=== PATIENT | male | born 1975 | race Caucasian/White ===

== ENCOUNTER 2017-09-16 10:18 | Emergency (ER) | payer MEDICARE, SELFPAY ==
[2017-09-16] VITALS (17 sets, daily range): BP systolic 121–169; BP diastolic 73–116; PULSE 64–80; RESP 13–27; TEMP 36.6; O2SAT 96–100
--- NOTE | 2017-09-16 10:36 | ED.GENADUL_ITS ---
Disposition Clinical Impression: Muscle strain, Abdominal pain Disposition: HOME Condition: Fair Instructions: Muscle Strain (ED), Abdominal Pain (ED) Additional Instructions: Encourage hydration. Tylenol and/or ibuprofen as needed for discomfort. Gentle stretching as discussed to help with your left shoulder pain. You may try Salonpas or Lidoderm patches to help with discomfort. In regard to your abdominal pain, you may find over the counter medication such as Omeprazole, to help with the discomfort. Especially as the pain is worse after eating when laying flat, this may be related to your acid reflux. I have asked our career and transition teacher to help you establish care with primary care. They will contact you. If you develop new/worsening symptoms return to the ER once again. Referrals: Primary Care Provider [Outside] Medical Decision Making - Lab Data Laboratory Tests 09/16/17 09/16/17 09/16/17 10:34 10:34 10:35 WBC 11.65 H RBC 5.66 Hgb 17.5 Hct 49.9 MCV 88.2 MCH 30.9 MCHC 35.1 RDW 13.6 Plt Count 204 MPV 10.9 Immature Gran % 0.4 Neutrophils % 67.7 Lymphocytes % 19.5 Monocytes % 7.0 Eosinophils % 4.9 Basophils % 0.5 Absolute Neutrophils 7.89 H Absolute Lymphocytes 2.27 Absolute Monocytes 0.82 H Absolute Eosinophils 0.57 Absolute Basophils 0.06 Sodium 138 Potassium 4.4 Chloride 101 Carbon Dioxide 27.7 Anion Gap 9.3 BUN 16 Creatinine 1.09 Estimated GFR/1.73 m2 >= 60.00 Glucose 104 H Calcium 9.3 Magnesium 2.0 Total Bilirubin 0.6 AST 19 ALT 47 Alkaline Phosphatase 74 Troponin I < 0.02 Total Protein 8.4 H Albumin 4.6 Lipase 176 TSH 3.14 Urine Color Urine Clarity Urine pH Ur Specific Bena Urine Protein Urine Ketones Urine Blood Urine Nitrite Urine Bilirubin Urine Urobilinogen Ur Leukocyte Esterase Urine RBC Urine WBC Ur Epithelial Cells Urine Crystals Urine Bacteria Urine Casts Urine Mucus Ur Culture Indicated? Urine Glucose 09/16/17 11:28 WBC RBC Hgb Hct MCV MCH MCHC RDW Plt Count MPV Immature Gran % Neutrophils % Lymphocytes % Monocytes % Eosinophils % Basophils % Absolute Neutrophils Absolute Lymphocytes Absolute Monocytes Absolute Eosinophils Absolute Basophils Sodium Potassium Chloride Carbon Dioxide Anion Gap BUN Creatinine Estimated GFR/1.73 m2 Glucose Calcium Magnesium Total Bilirubin AST ALT Alkaline Phosphatase Troponin I Total Protein Albumin Lipase TSH Urine Color Yellow Urine Clarity Clear Urine pH 7.0 Ur Specific Bena 1.020 Urine Protein Negative Urine Ketones Negative Urine Blood Trace-intact H Urine Nitrite Negative Urine Bilirubin Negative Urine Urobilinogen 0.2 Ur Leukocyte Esterase Negative Urine RBC 0-2 Urine WBC 0-2 Ur Epithelial Cells Few Urine Crystals Negative Urine Bacteria Rare Urine Casts Negative Urine Mucus Trace Ur Culture Indicated? No Urine Glucose Negative Results reviewed for labs ordered during visit: Yes - Medical Decision Making Patient presents today for multitude of complaints. Patient is endorsing pain in the left shoulder after repetitive heavy lifting 3 months ago. Exam is fairly benign. With forward elevation he did endorse pain over the trapezius. Full range of motion of the shoulder. No indication of rotator cuff injury at this time. Patient did not have any traumatic incident of the left shoulder. He reports that overall the pain is much improved compared to when he first noted it. The pain is improving, he had no trauma I do not feel that imaging is warranted at this time. In regard to his cyst on the left side of his back , I do not see any evidence of swelling, no signs of trauma. No palpable abnormality. The area the patient is indicating as his cyst as well as his area of discomfort is consistent with the end of the rib. Advised he try not to press excessively on this area as he seems to fixate on his complaints. Advised he may take Tylenol and/or ibuprofen as needed for discomfort. Advised that at this point I see no need for intervention. Patient had been endorsing some shortness of breath when waking suddenly at night. His description is most concerning for sleep apnea. No dyspnea on exertion. Patient is not currently feeling short of breath. Lungs are clear on exam. Normal cardiac exam. In regard to the mass he was feeling in his stomach, patient is pressing directly on the xiphoid process is the area that he is considering to be swollen. Pain is elicited with palpation over the xiphoid process. Patient reports that this has been there for quite some time and has been unchanged. I do not see any evidence of hernia. Patient is also concerned he has had diffuse abdominal pain for the past 1.5 years since mold exposure. Patient is endorsing diffuse abdominal pain but none seem to be elicited on exam. He reports that pain is worse after eating, primarily when he lies flat shortly after eating. He reports that he has history of acid reflux. Does not take any medication for this. Has not tried any medications for his discomfort or his acid reflux. We will obtain laboratory evaluation, chest x-ray and EKG. Patient is noted to be hypertensive, he does have a history of hypertension. Is also appearing quite anxious. This will be reassessed prior to his departure. We discussed that he would need to discuss his hypertension further with his primary care. EKG obtained by nursing staff and reviewed by Dr. York, no acute abnormality noted. Chest XR reviewed by myself and radiologist, no acute abnormality noted. Laboratory evaluation without significant abnormality. Urine is still pending. I discussed results with patient. I have asked our career and transition teacher to help facilitate f/u with PCP. Advised that he try stretching, heat/ice, topical patches and f/u with PCP for his left shoulder discomfort. In regard to his diffuse abdominal pain, lipase is normal, no abnormalities in kidney or liver function tests. No pain with palpation on exam. I do not We discussed his pain with palpation over the xyphoid and left lower rib, advised he try to not press on these areas as frequently. Urine without significant abnormality. Discussed all of the results with the patient. Patient will follow up with primary care, career and transition teacher help facilitate follow-up. I advised he begin [id number] medication to help with his abdominal pain that is most consistent with his history of GERD. Advised that he try [id number] analgesics to help with his multiple areas of discomfort. Advised he stop pressing on his xiphoid process as well as his left lower rib which seems to cause pain. Patient does endorse a large amount of anxiety and does report that he tends to fixate on his discomfort. He will discuss his blood pressure further with primary care. I encouraged hydration and overall healthy lifestyle choices. We discussed new/worsening symptoms emergency care urgently once again. All his questions and concerns were addressed he is in agreement with this plan. At the time of discharge patient' s blood pressure was 123/73. History of Present Illness - General Chief complaint: Abd Prob Stated complaint: ABDOMINAL PAIN Time Seen by Provider: 09/16/17 10:21 Source: patient, family, RN notes reviewed Mode of arrival: ambulatory Limitations: no limitations - History of Present Illness Initial comments: Patient is a 42-year-old male, accompanied by his mother, with multiple complaints today. Patient does not have a primary care provider and reports it has been approximately 13 years since his last visit with the physician. Patient reports that he has had left shoulder pain, particularly with forward elevation, for the past 3 months after repetitive heavy lifting. States that he has tingling in all of the tips of his digits. Patient is RHD. He is also endorsing a cyst on the left side of his mid back. Reports that this can be painful, particularly with palpation. Denies noting changes in the skin. Patient is also endorsing diffuse abdominal pain which she states has been present for the past 1.5 years. Reports that this abdominal pain has been present since renovating a bathroom which she states was full of mold. Feels that this may be linked. States that this pain is worse after eating, particularly at night when he lies flat shortly after eating. Also endorses a bulge at the superior, central aspect of his stomach. He denies any nausea vomiting. Denies any change in his bowels although he reports that he has had pain with BM for the past year. Denies any fevers or chills. States that for the past 3 months he has a few episodes when he awoke feeling SOB. He reports that he wakes up feeling SOB but that this can then quickly resolve. Patient has history of hypertension. - Related Data Allergies Allergy/AdvReac Type Severity Reaction Status Date / Time Iodinated Contrast- Oral and Allergy Unverified 09/16/17 10:27 IV Dye shellfish derived Allergy Unverified 09/16/17 10:27 Review of Systems Constitutional: no symptoms reported Respiratory: see HPI Cardiovascular: denies: chest pain, palpitations, dyspnea on exertion Gastrointestinal: as per HPI Genitourinary: dysuria. denies: urgency, frequency, hematuria, discharge, testicular pain Musculoskeletal: as per HPI Skin: denies: rash, lesions Neurological: as per HPI, paresthesias. denies: headache, weakness, confusion, abnormal gait Past Medical History - Past Medical History Medical history: hypertension Surgical history: herniorraphy - Social History Smoking status: former smoker (currently uses chewing tobacco) Drug use: marijuana (daily) General Exam - General Limitations: no limitations General appearance: alert, in no apparent distress - Head Head exam: Present: atraumatic - Eye Eye exam: Present: normal apperance - Respiratory Respiratory exam: Present: normal lung sounds bilaterally. Absent: respiratory distress, wheezes, rales, rhonchi - Cardiovascular Cardiovascular Exam: Present: regular rate, normal rhythm, normal heart sounds - GI/Abdominal GI/Abdominal exam: Present: soft, tenderness (tenderness and 'mass' noted over the xyphoid process. No evidence of hernia), normal bowel sounds. Absent: distended, guarding, rebound, rigid, organomegaly - Rectal Rectal exam: Present: normal inspection, normal rectal tone, heme (-) stool, normal prostate. Absent: black stool, fecal impaction, hemorrhoids, mass, tenderness, prostate tenderness, prostate enlargement - Extremities Exam Extremities exam: Present: tenderness. Absent: normal inspection (Given the patient's left upper extremity significant for pain with forward elevation. When he does this he indicates pain superiorly along the trapezius. He has full range of motion. 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 Negative Speed, negative Stanley, negative Neer.), pedal edema, joint swelling, calf tenderness - Back Exam Back exam: Present: tenderness (patient has point tenderness over 'bulge' on the left side of his back. No masses are palpable, patient has tenderness over the rib edge. He endorses this as the area of the 'cyst'. No cyst palpable. No discoloration in the skin ). Absent: CVA tenderness (R), CVA tenderness (L), muscle spasm, paraspinal tenderness, vertebral tenderness, rash noted - Neurological Exam Neurological exam: Present: alert, normal gait - Psychiatric Psychiatric exam: Present: normal affect, normal mood - Skin Skin exam: Present: warm, dry, intact, normal color Course Vital Signs - 24 hr 09/16/17 10:22 Temperature 36.6 C Pulse 80 Respiratory 16 Rate Blood Pressure 169/113 Pulse Oximetry 98
[2017-09-16 10:47] LABS: Abs Immature Grans 0.05 k/cumm (0.0-0.09); Absolute Basophil Count 0.06 k/cumm (0.0-0.2); Absolute Eosinophil Count 0.57 k/cumm (0.0-0.7); Absolute Lymphocyte Count 2.27 k/cumm (1.2-3.4); Absolute Monocyte Count 0.82 k/cumm (0.11-0.7); Basophils % 0.5; Eosinophils % 4.9; HCT 49.9 % (40.0-50.0); HGB 17.5 g/dL (13.5-17.5); Immature Grans % 0.4; Lymphocytes % 19.5; Mean Corp. HGB Concentration 35.1 g/dL (32.0-36.0); Mean Corpuscular Hemoglobin 30.9 pg (27.0-33.0); Mean Corpuscular Volume 88.2 fL (80-95); Mean Platelet Volume 10.9 fL (8.0-11.0); Neutrophils % 67.7; Platelet Count 204 x1000/uL (130-400); RBC 5.66 m/cumm (4.50-6.00); RBC Distribution Width 13.6 % (11.8-14.1); White Blood Cell Count 11.65 k/cumm (4.4-10.8)
[2017-09-16] MEDS: Normal Saline 1,000 ML 150 ML IV (10:47)
--- NOTE | 2017-09-16 10:47 | ED.FU ---
Care Signed Out By:: santiago - Vital Signs Recent Vitals - 8H: Vital Signs - 8 hr 09/16/17 10:22 Temperature 36.6 C Pulse 80 Respiratory 16 Rate Blood Pressure 169/113 Pulse Oximetry 98 - Continuation of Care Continuation of Care Plan: EKG 10: 28 Rate 75, intervals normal, no ST elevations or depressions. No T-wave inversions. Normal EKG. No Q waves
[2017-09-16 10:50] LABS: Absolute Neutrophil Count 7.89 k/cumm (1.2-6.7)
--- NOTE | 2017-09-16 10:54 | DI.REPORT_ITS ---
SYMPTOM/DIAGNOSIS: SOB PA AND LATERAL CHEST: The heart is normal in size. The lungs are clear. The mediastinal structures and pleura appear intact. CONCLUSION: Normal chest.
[2017-09-16 11:07] LABS: ALT 47 U/L (12-78); AST 19 U/L (15-37); Albumin 4.6 g/dL (3.4-5.0); Alkaline Phosphatase 74 U/L (46-116); Anion Gap 9.3 mmol/L (3-11); BUN 16 mg/dL (7-18); Bilirubin, Total 0.6 mg/dL (0.2-1.0); CO2 27.7 mmol/L (21.0-32.0); CREATININE 1.09 mg/dL (0.70-1.30); Calcium 9.3 mg/dL (8.5-10.1); Chloride 101 mmol/L (98-107); Glucose 104 mg/dL (70-100); Lipase 176 U/L (73-393); Potassium 4.4 mmol/L (3.5-5.1); Sodium 138 mmol/L (136-145); Total Protein 8.4 g/dL (6.4-8.2)
[2017-09-16 11:10] LABS: Troponin I < 0.02 ng/mL (0.00-0.06)
[2017-09-16 11:11] LABS: TSH (W/Ref FT4) 3.14 uIU/mL (0.358-3.74)
[2017-09-16 11:43] LABS: Bilirubin Negative (Negative); Blood Trace-intact (Negative); Clarity Clear; Glucose Negative (Negative); Ketones Negative (Negative); Leukocyte Esterase Negative (Negative); Nitrite Negative (Negative); Urobilinogen 0.2 EU/dL (Up TO 0.2)
[2017-09-16 11:54] LABS: Bacteria Rare HPF (Negative); C & S Indicated? No; Casts Negative LPF (Negative); Crystals Negative HPF (Negative); Epithelial Cells Few HPF (Negative); Mucus Trace (Negative); RBC 0-2 (0-2); WBC 0-2 HPF (0-5)
--- NOTE | 2017-09-17 11:34 | PDOC.ERCMPRO ---
Care Management Progress Note 09/17-Sylwia CHAVEZ requested assistance with a PCP f/u in 2-3 weeks for abd pain and muscle strain. Dr. Mcghee is bathroom tiling professional. Referral faxed to [facility].
== END 2017-09-16 12:24 | disposition home or self-care (01) ==
PROVIDERS: Physician Assistant; Emergency Provider Student in an Organized Health Care Education/Training Program
DX: S46.912A Strain of unspecified muscle, fascia and tendon at shoulder and upper arm level, left arm, initial encounter (principal); X50.3XXA Overexertion from repetitive movements, initial encounter; R10.817 Generalized abdominal tenderness; R06.02 Shortness of breath; I10 Essential (primary) hypertension
CPT/HCPCS: 71046; 93005; 96360; 96361; 99284 ×2; 36415; 80053; 83690; 81003; 81015; 83735; 84443; 84484; 85025; 93010

== ENCOUNTER 2022-07-21 20:50 | Outpatient (REF) | payer MEDICARE, MEDICAID, SELFPAY ==
[2022-07-21 20:44] LABS: ALT 56 U/L (16-63); AST 27 U/L (15-37); Alkaline Phosphatase 80 U/L (46-116); Anion Gap 9.6 mmol/L (3-11); BUN 18 mg/dL (7-18); Bilirubin, Total 0.5 mg/dL (0.2-1.0); CO2 27.4 mmol/L (21.0-32.0); CREATININE 1.1 mg/dL (0.70-1.30); Calcium 9.3 mg/dL (8.5-10.1); Calculated LDL 144 mg/dL (<100); Chloride 103 mmol/L (98-107); Cholesterol 209 mg/dL (<200); Estimated GFR 83.84 (mL/min/1.73m2); Glucose 128 mg/dL (74-106); HDL Cholesterol 31 mg/dL (40-60); Potassium 4.4 mmol/L (3.5-5.1); Sodium 140 mmol/L (136-145); Total Protein 7.9 g/dL (6.4-8.2); Triglyceride 170 mg/dL (<150)
[2022-07-21 20:52] LABS: COMMENT (LAB VIEW ONLY) 274.12 mg/dL
[2022-07-21 20:55] LABS: Microalb ug/mg Crea 164.9 ug/mg Cr
== END 2022-07-21 20:51 | disposition home or self-care (01) ==
LOC: NCHCN 20:50
PROVIDERS: Visit Provider Nurse Practitioner Family
DX: I10 Essential (primary) hypertension (principal); E11.65 Type 2 diabetes mellitus with hyperglycemia; E66.01 Morbid (severe) obesity due to excess calories
CPT/HCPCS: 80053; 80061; 82043; 82570

== ENCOUNTER 2022-07-24 10:08 | Outpatient (REF) | payer MEDICARE, MEDICAID, SELFPAY ==
[2022-07-24 20:19] LABS: COMMENT (LAB VIEW ONLY) 185.32 mg/dL; PROTEIN 45.8 mg/dL; Prot/Crea Ur Ratio 0.24
== END 2022-07-24 10:09 | disposition home or self-care (01) ==
LOC: NCHCN 10:08
PROVIDERS: Visit Provider Nurse Practitioner Family
DX: R80.9 Proteinuria, unspecified (principal)
CPT/HCPCS: 82565; 84156

== ENCOUNTER 2023-07-22 11:40 | Outpatient (REF) | payer MEDICARE, MEDICAID, SELFPAY ==
[2023-07-22 22:18] LABS: ALT 43 U/L (16-63); AST 27 U/L (15-37); Albumin 3.9 g/dL (3.4-5.0); Alkaline Phosphatase 73 U/L (46-116); Anion Gap 9.4 mmol/L (3-11); BUN 20 mg/dL (7-18); Bilirubin, Total 0.5 mg/dL (0.2-1.0); CO2 26.6 mmol/L (21.0-32.0); CREATININE 1.1 mg/dL (0.70-1.30); Calcium 9.4 mg/dL (8.5-10.1); Chloride 103 mmol/L (98-107); Estimated GFR 83.32 (mL/min/1.73m2); Glucose 115 mg/dL (74-106); Potassium 4.6 mmol/L (3.5-5.1); Sodium 139 mmol/L (136-145); Total Protein 7.5 g/dL (6.4-8.2)
== END 2023-07-22 11:41 | disposition home or self-care (01) ==
LOC: NCHCN 11:40
PROVIDERS: Visit Provider Nurse Practitioner Family
DX: E11.65 Type 2 diabetes mellitus with hyperglycemia (principal)
CPT/HCPCS: 80053

== ENCOUNTER 2023-11-09 12:37 | Outpatient (REF) | payer MEDICARE, MEDICAID, SELFPAY ==
[2023-11-09 19:35] LABS: Calculated LDL 83 mg/dL (<100); Cholesterol 150 mg/dL (<200); HDL Cholesterol 32 mg/dL (40-60); Triglyceride 176 mg/dL (<150)
[2023-11-09 19:40] LABS: Troponin I < 4 ng/L (<or=76)
== END 2023-11-09 12:38 | disposition home or self-care (01) ==
LOC: NCHCN 12:37
PROVIDERS: PCP Nurse Practitioner Family; Visit Provider Nurse Practitioner Family
DX: R07.9 Chest pain, unspecified (principal)
CPT/HCPCS: 80061; 84484

== ENCOUNTER 2024-01-18 01:40 | Outpatient (CLI) | payer MEDICARE, MEDICAID, SELFPAY ==
--- NOTE | 2024-01-18 14:15 | DI.US_ITS ---
APPROVED REPORT Exam: Exercise Treadmill Patient Location: Out-Patient Room/Bed: Stress Nurse: Rosy Dawkins RN Ordering Provider:BARRETTDARREN MATUTE, Contact Number: [phone] BMI: 49.90 Baseline Rhythm: Sinus Rhythm Indications: Chest pain, Medical History Medical History: HTN, HLD, severe obesity, depression, YESENIA, asthma, COPD, T2DM, sleep disorder Cardiac Medications: Atorvastatin, breo ellipta, lisinopril, metoprolol succinate, ozempic, sertralin e, ventolin HFA Allergies: Shellfish Cardiac Risk Factors: Family hx, HTN, HLD, diabetes, asthma, COPD, former smoker, obesity Previous Cardiac Procedures: None Pretest Chest Pain Characteristics: None Exercise History: Sedentary Physical Disabilities: Hx SOB with exertion Lung Sounds: Diminished throughout Heart Sounds: Regular Stress Test Details Test: Exercise stress testing was performed using a Deric protocol. Rest Stress HR Resting HR Supine: 72 bpm Max Heart Rate (APMHR): 172 bpm Resting HR Standin bpm Target HR (85% APMHR): 146 bpm Max HR Achieved: 138 bpm % of APMHR: 80 Recovery HR: 89 bpm HR response to stress: Normal HR response to stress BP Resting BP Supine: 130/90 mmHg Resting BP Standin/88 mmHg Max BP: 190/82 mmHg Recovery BP: 130/88 mmHg BP response to stress: Normal blood pressure response to stress. ECG Resting ECG: Sinus Rhythm Ectopy: None Stress ECG: Sinus Tachycardia ST Change: Nondiagnostic low heart rate Arrhythmia: Occasional PAC's Recovery ECG: Sinus Rhythm Recovery ST Change: Nondiagnostic low heart rate Recovery Arrhythmia: Occasional PAC's Clinical Reason for Termination: SOB, Fatigue Stress Symptoms: Leg Fatigue, General Fatigue, severe SOB Exercise duration: 05 min15 sec Highest Stage Reached: Stage 2: 2.5 mph at 12% grade. Exercise capacity: 7.05 METs Angina Score: None Manrique Treadmill Score: 3.8 Rate Pressure Product: 71471 Stress ECG Conclusion 1. Resting electrocardiogram showed low voltage 2. Patient exercised on the Deric protocol completed workload of 7 METS 3. Normal heart rate and blood pressure response to exercise. The patient achieved 80% of predicted heart rate for age 4. There was no electrocardiographic evidence of myocardial ischemia at a submaximal heart rate 5. There was no echocardiographic evidence of myocardial ischemia. Ejection fraction improved from 6 0% at rest to greater than 70% at peak exercise 6. There were no significant dysrhythmias Manrique Treadmill Score is 3.8 which is Moderate risk. Stress Test Summary STAGE Time (mins) Speed (mph) Grade (%) HR BP SpO2 SYMPTOMS METS Supine 72 130/90 94% Standing 84 132/88 1 3 1.7 10 113 168/84 97% Mod-severe SOB 4.5 2 6 2.5 12 136 Severe SOB, leg fatigue, general fatigue. 7 1 min recovery 99 190/82 96% Mod-severe SOB 3 min recovery 92 150/80 96% Mild SOB 6 min recovery 89 130/88 94% All symptoms resolved. Patient left ambulatory in no apparent distress.
== END 2024-01-18 02:00 ==
PROVIDERS: PCP Nurse Practitioner Family; Visit Provider Nurse Practitioner Family
DX: R07.9 Chest pain, unspecified (principal)
CPT/HCPCS: 93306; 93350; 93017

== ENCOUNTER 2024-05-03 13:32 | Outpatient (REF) | payer MEDICARE, MEDICAID, SELFPAY ==
[2024-05-03 20:57] LABS: ALT 30 U/L (16-63); AST 22 U/L (15-37); Albumin 3.9 g/dL (3.4-5.0); Alkaline Phosphatase 79 U/L (46-116); BUN 17 mg/dL (7-18); Bilirubin, Total 0.5 mg/dL (0.2-1.0); CREATININE 1.1 mg/dL (0.70-1.30); Calcium 9.5 mg/dL (8.5-10.1); Chloride 105 mmol/L (98-107); Estimated GFR 82.81 (mL/min/1.73m2); Glucose 109 mg/dL (74-106); Potassium 4.5 mmol/L (3.5-5.1); Sodium 139 mmol/L (136-145); Total Protein 7.4 g/dL (6.4-8.2)
[2024-05-03 21:13] LABS: Calculated LDL 75 mg/dL (<100); Cholesterol 134 mg/dL (<200); HDL Cholesterol 34 mg/dL (>or=40); Triglyceride 128 mg/dL (<150)
== END 2024-05-03 13:33 | disposition home or self-care (01) ==
LOC: NCHCN 13:32
PROVIDERS: PCP Nurse Practitioner Family; Visit Provider Nurse Practitioner Family
DX: E78.5 Hyperlipidemia, unspecified (principal)
CPT/HCPCS: 80053; 80061